=== PATIENT | female | born 1960 | race Asian ===

== ENCOUNTER 2016-08-22 04:32 | Emergency (ER) | payer OTHER ==
[2016-08-22] MEDS ORDERED: SODIUM CHLORIDE 1,000 ML IV ONE (04:38)
[2016-08-22] MEDS ORDERED: KETOROLAC TROMETHAMINE 30 MG/1 ML VIAL IVPUSH ONE (04:38)
[2016-08-22] MEDS ORDERED: morphine CARPU-JECT 2 MG/1 ML DISP.SYRIN IVPUSH ONE ×2 (04:38→05:51)
[2016-08-22] MEDS ORDERED: ONDANSETRON 4 MG/2 ML VIAL IVPUSH ONE (04:39)
--- NOTE | 2016-08-22 04:42 | PDOC ---
History of Present Illness - General Chief Complaint: Pain, Acute Stated Complaint: RIGHT FLANK PAIN Time Seen by Provider: 08/22/16 04:36 History Source: Patient Exam Limitations: No Limitations - History of Present Illness Initial Comments: 08/22/16 04:39 This is a 56-year-old female who comes in complaining of acute onset right flank pain associated with nausea. Patient has history of renal colic in the past. Patient said pain is similar this time. Patient denies any fevers, chills , frequency, dysuria. Patient denies any hematuria but urine that she gave us does appear to have some hematuria. Patient is otherwise healthy. PAST MEDICAL HISTORY: no significant history PAST SURGICAL HISTORY: no significant history FAMILY HISTORY: no pertinant history SOCIAL HISTORY: Pt lives with family and is employed. MEDICATIONS: reviewed ALLERGIES: As per nursing notes Review of Systems General: No fevers or chills, no weakness, no weight loss HEENT: No change in vision. No sore throat,. No ear pain CardioVascular: No chest pain or shortness of breath Respiratory:No cough, or wheezing. Gastrointestinal: no nausea, vomitting, diarrhea or constipation, No rectal bleeding Genitourinary: No dysuria, hematuria, or frequency, right flank pain, renal colic Musculoskeletal: No joint or muscle pain or swelling Neurologic: No headache, vertigo, dizziness or loss of consciousness Psychiatric: nor depression Skin: No rashes or easy bruising Endocrine: no increased thirst or abnormal weight change Allergic: no skin or latex allergy All other systems reviewed and normal Exam: General: Well-nourished well-developed individual, no acute distress HEENT: Throat: Normal, tonsils normal, no erythema or exudate Neck: Supple, no meningeal signs, no lymphadenopathy Eyes::Pupils equal reactive and round, extraocular motion intact Chest: Nontender to palpation Cardiac: S1-S2 normal, regular rate and rhythm, no murmurs rubs or gallops Respiratory: Lungs clear to auscultation bilateral Abdomen: Soft, nondistended, normal bowel sounds, moderately tender to palpation in the right flank and right lower abdomen. No guarding or rebound Back: No CVA tenderness mild to moderate palpation right flank. Extremities: Warm, dry, no cyanosis, clubbing, or edema Skin: No rashes Neuro: Alert and oriented x3, nonfocal exam, grossly intact, normal gait Psych: Normal mood and affect CT scan 08/22/16 06:09 Kit Planner: ([email or web address]) Begin of Report Content Referring Physician: Breanna Sandoval Patient Name: Brijesh Boucher This is a preliminary report by imaging manager utilization review Exam: Noncontrast CT abdomen and pelvis Images: [id number] Clinical indication: Flank pain. Rule out stone. Findings: The lung bases are clear. Minimal dependent changes are noted bilaterally. The liver, gallbladder, spleen and pancreas all have a normal unenhanced appearance. The adrenal glands are unremarkable. The left kidney has a normal unenhanced appearance. A right renal hypodensity is noted. A nonobstructing calculus is noted in the mid right kidney. There is fullness of the renal collecting system and proximal hydroureter. Nonobstructing 2 mm calculus is present in the proximal right ureter (image 61). The gastrointestinal tract does not appear obstructed. No thickened or dilated bowel is seen. The appendix has a normal appearance. No mesenteric infiltration or free fluid. The uterus is in neutral position. No adnexal masses are seen. The urinary bladder is unremarkable. No abdominal or pelvic adenopathy is seen. No lytic or blastic destructive osseous lesions are seen. Impression: Obstructing calculus in the proximal right ureter. THIS DOCUMENT HAS BEEN ELECTRONICALLY SIGNED Rudi Matthews M.D. 08/22/2016 05:53 SLOANE Coon Please call Imaging Human Resources Executive [phone] ([phone]) with questions. End of Report Content Assessment and plan: This is a 56-year-old female who comes in complaining of right flank pain. Patient had a workup including CAT scan that shows a nonobstructing 2 mm stone in the mid right ureter. patient is afebrile, she does not have a white count or left shift. Her urine shows blood but no sign of infection. Her pain is been managed in the emergency room with morphine and Toradol. Patient was given one Percocet before discharge. Prescriptions were sent to patient's pharmacy for her cassette, Zofran and Flomax. Patient was given a follow-up to urology Dr. Chavez Past History - Past Medical History Allergies/Adverse Reactions: Allergies Allergy/AdvReac Type Severity Reaction Status Date / Time No Known Allergies Allergy Verified 08/22/16 04:33 Home Medications: Ambulatory Orders Ondansetron [Zofran Odt -] 4 mg SL TID #21 od.tablet 08/22/16 Oxycodone HCl/Acetaminophen [Percocet 5-325 mg Tablet] 1 - 2 tab PO Q4H #20 tablet MDD 8 08/22/16 Tamsulosin HCl [Flomax] 0.4 mg PO DAILY #30 cap.er.24h 08/22/16 Anemia: No Asthma: No Cancer: No Cardiac Disorders: No CVA: No COPD: No CHF: No Dementia: No Diabetes: No GI Disorders: No Disorders: No HTN: No Hypercholesterolemia: No Liver Disease: No Seizures: No Thyroid Disease: No - Surgical History Abdominal Surgery: No Appendectomy: No Cardiac Surgery: No Cholecystectomy: No Lung Surgery: No Neurologic Surgery: No Orthopedic Surgery: No - Immunization History Immunization Up to Date: Yes - Psycho/Social/Smoking Cessation Hx Anxiety: No Suicidal Ideation: No Smoking Status: No Smoking History: Never smoked Have you smoked in the past 12 months: No Number of Cigarettes Smoked Daily: 0 Hx Alcohol Use: No Drug/Substance Use Hx: No Substance Use Type: None Hx Substance Use Treatment: No ED Treatment Course - LABORATORY CBC & Chemistry Diagram: 08/22/16 04:45 08/22/16 04:45 *DC/Admit/Observation/Transfer Diagnosis at time of Disposition: Renal colic on right side - Discharge Dispostion Disposition: HOME Condition at time of disposition: Stable Admit: No - Prescriptions Prescriptions: Tamsulosin HCl [Flomax] 0.4 mg PO DAILY #30 cap.er.24h Oxycodone HCl/Acetaminophen [Percocet 5-325 mg Tablet] 1 - 2 tab PO Q4H #20 tablet MDD 8 Ondansetron [Zofran Odt -] 4 mg SL TID #21 od.tablet - Patient Instructions Printed Discharge Instructions: DI for Kidney Stones, Kidney Stones -- Adult Additional Instructions: For the pain you can take Tylenol or Motrin. If she needs something stronger I am sending a prescription for Percocet to her pharmacy U can take one to 2 Percocet every 4-6 hours as needed. To help keep the urine: Take Flomax 1 tablet a day For nausea take Zofran 1 tablet as often as every 6-8 hours that it dissolve under your tongue. Stay well-hydrated strain your urine. Follow-up with a urologist in need a urologist call Dr. Bojorquez this morning for an appointment. Return to the emergency department immediately with ANY new, persistent or worsening symptoms. Continue any medications as previously prescribed by your physician. You should follow up with your primary doctor as soon as possible regarding today's emergency department visit. . Please make sure your doctor reviews the results of your emergency evaluation. Thank you for coming to the Emergency Department today for your care. It was a pleasure to see you today. Please note that your evaluation is INCOMPLETE until you follow-up with your doctor.
[2016-08-22 04:49] VITALS: BP 134/70; PULSE 64; TEMP 97.5; BMI 17.2
[2016-08-22 05:13] LABS: BASOPHIL 0.6 % (0-2.0); EOSINOPHIL 1.9 % (0-4.5); MCHC 33.6 g/dl (32.0-36.0); MEAN CELL VOLUME 95.2 fl (80-96); MEAN PLT VOLUME 11.3 fl (7.5-11.1); NEUTROPHILS 70.5 % (42.8-82.8); PLATELET COUNT 85 K/MM3 (134-434); RDW 12.8 % (11.6-15.6); WHITE BLOOD COUNT 8.4 K/mm3 (4.0-10.0)
[2016-08-22 05:15] LABS: URINE APPEARANCE SLCLOUDY; URINE BILIRUBIN NEGATIVE (NEGATIVE); URINE COLOR LTYELLOW; URINE GLUCOSE (UA) NEGATIVE (NEGATIVE); URINE KETONE NEGATIVE (NEGATIVE); URINE NITRITE NEGATIVE (NEGATIVE); URINE PROTEIN NEGATIVE (NEGATIVE); URINE UROBILINOGEN NEGATIVE E.U./dl (0.2-1.0)
[2016-08-22 05:19] LABS: URINE BLOOD 3+ (NEGATIVE); URINE LEUK ESTERASE TRACE (NEGATIVE)
[2016-08-22 05:22] LABS: URINE BACTERIA RARE /hpf (NONE SEEN); URINE MUCUS RARE; URINE RBC 909 /hpf (0-3); URINE WBC 27 /hpf (3-5)
[2016-08-22 05:34] LABS: ALBUMIN 3.8 g/dl (3.4-5.0); ALK PHOS 70 U/L (45-117); ANION GAP 9 (8-16); BILIRUBIN,TOTAL 0.6 mg/dL (0.2-1.0); CALCIUM 8.2 mg/dL (8.5-10.1); CO2 27 mmol/L (21-32); CREATININE 0.6 mg/dL (0.55-1.02); GLUCOSE,RANDOM 130 mg/dL (74-106); SGOT/AST 30 U/L (15-37); SGPT/ALT 34 U/L (12-78); TOT PROT 6.5 g/dl (6.4-8.2)
[2016-08-22 05:41] LABS: TROPONIN I < 0.02 ng/ml (0.00-0.05)
[2016-08-22] MEDS ORDERED: morphine CARPU-JECT 10 MG/1 ML DISP.SYRIN ONE (05:47)
[2016-08-22] MEDS ORDERED: OXYCODONE/APAP 5/325MG COMBO TABLET PO ONE (05:59)
[2016-08-22] MEDS ORDERED: OXYCODONE/APAP 5/325MG COMBO TABLET ONE (06:00)
== END 2016-08-22 06:24 | disposition home or self-care (01) ==
LOC: FER 04:32
PROC: 3E0333Z Introduction of Anti-inflammatory into Peripheral Vein, Percutaneous Approach (ICD-10-PCS; principal; 2016-08-22)
PROC: 3E033NZ Introduction of Analgesics, Hypnotics, Sedatives into Peripheral Vein, Percutaneous Approach (ICD-10-PCS; 2016-08-22)
PROC: 3E033GC Introduction of Other Therapeutic Substance into Peripheral Vein, Percutaneous Approach (ICD-10-PCS; 2016-08-22)
PROC: 3E0337Z Introduction of Electrolytic and Water Balance Substance into Peripheral Vein, Percutaneous Approach (ICD-10-PCS; 2016-08-22)
DX: N23 Unspecified renal colic (principal)
CPT/HCPCS: 36415; 74176-TC; 80053; 81003; 81015; 82550; 84484; 85025; 96361; 96374; 96375; 99281-25

== ENCOUNTER 2017-06-19 09:50 | Emergency (ER) | payer OTHER ==
[2017-06-19 09:57] VITALS: BP 119/70; PULSE 73; TEMP 97.4; BMI 17.4
--- NOTE | 2017-06-19 10:45 | PDOC ---
History of Present Illness - General Chief Complaint: Respiratory Stated Complaint: SOB Time Seen by Provider: 06/19/17 10:37 History Source: Patient Exam Limitations: No Limitations - History of Present Illness Initial Comments: 06/19/17 11:24 Patient came to emergency department for evaluation of 3 weeks of moist productive cough of yellow phlegm. States 3 days ago had temperatures 38.5 Celsius for 3 days. Complaints of headache, some mild sore throat pain, and some pleuritic type chest pain. Has been using Robitussin with minimal resolved. 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 Did not take flu shot this year Timing/Duration: reports: getting worse Severity: reports: mild, moderate Associated Symptoms: reports: chest pain/soreness, cough, fever/chills, headache , nasal congestion, nasal drainage, wheezing Past History - Travel Traveled outside of the country in the last 30 days: No Close contact w/someone who was outside of country & ill: No - Past Medical History Allergies/Adverse Reactions: Allergies Allergy/AdvReac Type Severity Reaction Status Date / Time No Known Allergies Allergy Verified 06/19/17 09:56 Home Medications: Ambulatory Orders Ondansetron [Zofran Odt -] 4 mg SL TID #21 od.tablet 08/22/16 Oxycodone HCl/Acetaminophen [Percocet 5-325 mg Tablet] 1 - 2 tab PO Q4H #20 tablet MDD 8 08/22/16 Tamsulosin HCl [Flomax] 0.4 mg PO DAILY #30 cap.er.24h 08/22/16 Albuterol Sulfate Inhaler - [Ventolin HFA Inhaler -] 1 - 2 inh PO Q4H #1 inhaler 06/19/17 Azithromycin [Zithromax -] 250 mg PO UTDICT #6 tab 06/19/17 Prednisone [Deltasone -] 20 mg PO BID #8 tablet 06/19/17 Anemia: No Asthma: No Cancer: No Cardiac Disorders: No CVA: No COPD: No CHF: No Dementia: No Diabetes: No GI Disorders: No Disorders: No HTN: No Hypercholesterolemia: No Liver Disease: No Seizures: No Thyroid Disease: No - Surgical History Abdominal Surgery: No Appendectomy: No Cardiac Surgery: No Cholecystectomy: No Lung Surgery: No Neurologic Surgery: No Orthopedic Surgery: No - Immunization History Immunization Up to Date: Yes - Suicide/Smoking/Psychosocial Hx Smoking Status: No Smoking History: Never smoked Have you smoked in the past 12 months: No Number of Cigarettes Smoked Daily: 0 Hx Alcohol Use: No Drug/Substance Use Hx: No Substance Use Type: None Hx Substance Use Treatment: No Respiratory Specific PMHX - Complaint Specific PMHX Bronchitis: No Review of Systems - Review of Systems Able to Perform ROS?: Yes Is the patient limited Kyrgyz proficient: Yes Constitutional: Yes: Symptoms Reported, See HPI, Fever, Loss of Appetite, Malaise HEENTM: Yes: Symptoms Reported, See HPI, Nose Congestion, Throat Pain Respiratory: Yes: Symptoms reported, See HPI, Cough, Shortness of Breath, Wheezing ABD/GI: Yes: See HPI. No: Symptoms Reported Musculoskeletal: Yes: Symptoms Reported All Other Systems: Reviewed and Negative *Physical Exam - Vital Signs Last Vital Signs Temp Pulse Resp BP Pulse Ox 97.4 F L 73 18 119/70 99 06/19/17 09:54 06/19/17 09:54 06/19/17 09:54 06/19/17 09:54 06/19/17 09:54 - Physical Exam General Appearance: Yes: Nourished, Appropriately Dressed, Apparent Distress, Mild Distress HEENT: positive: MELVIN, Normal ENT Inspection, TMs Normal (congested but landmarks easily visualized), Rhinorrhea, Sinus Tenderness Neck: positive: Supple. negative: Tender, Lymphadenopathy (R), Lymphadenopathy (L) Respiratory/Chest: positive: Decreased Breath Sounds (bibasilar inspiratory grunts), Wheezing. negative: Lungs Clear, Normal Breath Sounds, Respiratory Distress Cardiovascular: positive: Regular Rhythm Gastrointestinal/Abdominal: positive: Soft. negative: Tender Extremity: positive: Normal Capillary Refill, Normal Range of Motion Integumentary: positive: Normal Color, Dry, Warm, Pale Neurologic: positive: rubber flap cutter II-XII NML intact, Fully Oriented, Alert, Normal Mood/ Affect, Normal Response, Motor Strength 5/5 Progress Note - Progress Note Progress Note: Upper respiratory infection, influenza test negative, we'll treat with Z-Jerome, prednisone, and albuterol inhalers. Have follow-up PMD *DC/Admit/Observation/Transfer Diagnosis at time of Disposition: Bronchitis - Discharge Dispostion Disposition: HOME Condition at time of disposition: Stable Admit: No - Prescriptions Prescriptions: Albuterol Sulfate Inhaler - [Ventolin HFA Inhaler -] 1 - 2 inh PO Q4H #1 inhaler Azithromycin [Zithromax -] 250 mg PO UTDICT #6 tab Prednisone [Deltasone -] 20 mg PO BID #8 tablet - Referrals Referrals: STAFF,NOT ON [Primary Care Provider] - - Patient Instructions Additional Instructions: Rest, drink lots of fluids: Teas, water, soups, Pedialyte Saltwater gargles Steamy showers/seem to face break up mucus Avoid contact with others until fevers and cough resolved Lots of handwashing and good hygiene Continue [id number] medications for symptomatic relief Tylenol or Motrin for fever and pain Continue albuterol nebulizers every 4-6 hours for the next 2 days then as needed for continued cough Prednisone as directed until completed Azithromycin as directed Followup with private physician in one to 2 days Return to emergency department / pediatric hospital for worsened symptoms, fevers, dehydration - Post Discharge Activity
[2017-06-19] MEDS ORDERED: ALBUTEROL SO4 2.5/IPRATROPIUM 0.5 INH SOL 3 ML VIAL.NEB. NEB ONE ×2 (10:58→11:13)
[2017-06-19] MEDS ORDERED: predniSONE 20 MG TABLET (UD) PO ONE (10:58)
[2017-06-19] MEDS ORDERED: predniSONE 20 MG TABLET (UD) ONE (11:13)
== END 2017-06-19 12:15 | disposition home or self-care (01) ==
LOC: JERFT 09:50 → JER 09:50
PROC: 3E0F7GC Introduction of Other Therapeutic Substance into Respiratory Tract, Via Natural or Artificial Opening (ICD-10-PCS; principal; 2017-06-19)
DX: J40 Bronchitis, not specified as acute or chronic (principal)
CPT/HCPCS: 71020-TC; 87804; 94640; 99283-25

== ENCOUNTER 2017-07-18 07:26 | Emergency (ER) | payer OTHER ==
[2017-07-18 07:31] VITALS: BP 108/74; PULSE 93; TEMP 98.6; BMI 17.9
--- NOTE | 2017-07-18 07:33 | PDOC ---
History of Present Illness - General Chief Complaint: Cold Symptoms Stated Complaint: FEVER,COUGH Time Seen by Provider: 07/18/17 07:33 - History of Present Illness Initial Comments: 57 year old female with no PMH presenting with cough, fever, and lethargy for the past week. Did not use a thermometer at home to check the fever and describes the cough as dry and infrequent. She states all of the symptoms started with the cough one week prior and the fever has only been present for the past two days. She had similar symptoms one month prior for which she came to the ED and received a chest X ray that was completely normal. 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 Denies any nausea, vomiting, diarrhea, constipation, or chest pain. 07/18/17 07:49 Past History - Past Medical History Allergies/Adverse Reactions: Allergies Allergy/AdvReac Type Severity Reaction Status Date / Time No Known Allergies Allergy Verified 07/18/17 07:31 Home Medications: Ambulatory Orders Ondansetron [Zofran Odt -] 4 mg SL TID #21 od.tablet 08/22/16 Oxycodone HCl/Acetaminophen [Percocet 5-325 mg Tablet] 1 - 2 tab PO Q4H #20 tablet MDD 8 08/22/16 Tamsulosin HCl [Flomax] 0.4 mg PO DAILY #30 cap.er.24h 08/22/16 Albuterol Sulfate Inhaler - [Ventolin HFA Inhaler -] 1 - 2 inh PO Q4H #1 inhaler 06/19/17 Azithromycin [Zithromax -] 250 mg PO UTDICT #6 tab 06/19/17 Prednisone [Deltasone -] 20 mg PO BID #8 tablet 06/19/17 Azithromycin [Zithromax Tri-Jerome (3 DAYS) -] 500 mg PO DAILY #3 tablet 07/18/17 Guaifenesin AC [Robitussin AC] 10 ml PO Q8H PRN #120 ud MDD 40 ml 07/18/17 Anemia: No Asthma: No Cancer: No Cardiac Disorders: No CVA: No COPD: No CHF: No Dementia: No Diabetes: No GI Disorders: No Disorders: No HTN: No Hypercholesterolemia: No Liver Disease: No Seizures: No Thyroid Disease: No Other medical history: denies - Surgical History Abdominal Surgery: No Appendectomy: No Cardiac Surgery: No Cholecystectomy: No Lung Surgery: No Neurologic Surgery: No Orthopedic Surgery: No - Immunization History Immunization Up to Date: Yes - Suicide/Smoking/Psychosocial Hx Smoking Status: No Smoking History: Never smoked Have you smoked in the past 12 months: No Number of Cigarettes Smoked Daily: 0 Information on smoking cessation initiated: No Hx Alcohol Use: No Drug/Substance Use Hx: No Substance Use Type: None Hx Substance Use Treatment: No Review of Systems - Review of Systems Constitutional: Yes: Chills, Fever, Weakness. No: Diaphoresis, Loss of Appetite HEENTM: Yes: Blurred Vision (two days prior had one episode of blurred vision) Respiratory: Yes: Cough. No: Orthopnea, Shortness of Breath, Wheezing Cardiac (ROS): No: Chest Pain, Edema, Irregular Heart Rate, Chest Tightness ABD/GI: Yes: Poor Fluid Intake. No: Abdominal Distended, Constipated, Diarrhea , Nausea, Vomiting : No: Dysuria, Discharge, Frequency Integumentary: No: Lesions, Lumps Neurological: Yes: Headache. No: Numbness *Physical Exam - Vital Signs Last Vital Signs Temp Pulse Resp BP Pulse Ox 98.6 F 93 H 18 108/74 98 07/18/17 07:29 07/18/17 07:29 07/18/17 07:29 07/18/17 07:29 07/18/17 07:29 - Physical Exam General Appearance: Yes: Nourished, Appropriately Dressed. No: Apparent Distress HEENT: positive: EOMI, MELVIN, Normal ENT Inspection Neck: positive: Trachea midline, Normal Thyroid, Supple. negative: Tender, Rigid Respiratory/Chest: positive: Lungs Clear, Normal Breath Sounds. negative: Chest Tender, Respiratory Distress, Accessory Muscle Use Cardiovascular: positive: Regular Rhythm, Regular Rate Gastrointestinal/Abdominal: positive: Normal Bowel Sounds, Flat, Soft. negative : Tender Musculoskeletal: positive: Normal Inspection Extremity: positive: Normal Capillary Refill, Normal Inspection Integumentary: positive: Normal Color, Dry, Warm Neurologic: positive: Fully Oriented, Alert, Normal Mood/Affect, Normal Response , Motor Strength 5/5 ED Treatment Course - LABORATORY CBC & Chemistry Diagram: 07/18/17 08:27 07/18/17 08:27 Medical Decision Making - Medical Decision Making 57 year old female with URI like symptoms, clear CXR, and labs significant for slightly low WBC and thrombocytopenia. Flu negative. Patietn feeling better with toradol IV and Zofran. Seems very anxious. Has no consistent PCP follow up so sent home with Gal Chapman follow up and elijahutssin for cough. 07/18/17 10:19 *DC/Admit/Observation/Transfer Diagnosis at time of Disposition: Viral URI with cough - Discharge Dispostion Disposition: HOME Condition at time of disposition: Improved Admit: No - Prescriptions Prescriptions: Azithromycin [Zithromax Tri-Jerome (3 DAYS) -] 500 mg PO DAILY #3 tablet Guaifenesin AC [Robitussin AC] 10 ml PO Q8H PRN #120 ud MDD 40 ml PRN Reason: Cough - Referrals Referrals: David Santo MD [Staff Physician] - - Patient Instructions Printed Discharge Instructions: DI for Viral Upper Respiratory Infection -- Adult Additional Instructions: You do not have the common flu virus and your labs did not show infection but you may have another virus that we cannot test for. Also your WBC and platelets were slightly low. Your chest x ray was clear and does not show infection. Please use Tylenol and Motrin at home for your fever and pain. Please follow up with Dr. Santo this week at the [facility] if you have any more questions. Please return to the ED if you get worse or your symptoms do not start to improve after using Tylenol. - Post Discharge Activity
[2017-07-18] MEDS ORDERED: KETOROLAC TROMETHAMINE 15 MG/ML VIAL IVPUSH ONE (08:30)
[2017-07-18] MEDS ORDERED: SODIUM CHLORIDE 1,000 ML IV STA (08:31)
--- NOTE | 2017-07-18 08:31 | PDOC ---
Attending Attestation - Resident Resident Name: Bear Matos - ED Attending Attestation I have performed the following: I have examined & evaluated the patient, The case was reviewed & discussed with the resident, I agree w/resident's findings & plan, Exceptions are as noted - HPI HPI: 07/18/17 08:26 57-year-old female with no significant past medical history presents with 1 week of cough, fatigue, anorexia, bodyaches, and gradual onset frontal headache. 2 days ago the patient developed a fever to a MAXIMUM TEMPERATURE of 101.3 and she spiked another fever overnight which prompted her to come into the emergency department today. She also reports a sore throat last week that has since resolved. Her cough is nonproductive, however now she has lower chest pain when she coughs. No recent travel or long trips. No history of TB. Last saw her primary doctor last year, does not remember his name. No treatments tried. Denies shortness of breath, focal weakness or numbness, neck stiffness, abdominal pain. - Physicial Exam PE: 07/18/17 08:28 GENERAL: Awake, alert, and fully oriented, in no acute distress. Feels warm HEAD: No signs of trauma EYES: PERRLA, EOMI, sclera anicteric, conjunctiva clear ENT: Auricles normal inspection, hearing grossly normal, nares patent, oropharynx clear without exudates. Moist mucosa NECK: Normal ROM, supple, no lymphadenopathy, JVD, or masses LUNGS: Breath sounds equal, clear to auscultation bilaterally. No wheezes, and no crackles HEART: Regular rate and rhythm, normal S1 and S2, no murmurs, rubs or gallops ABDOMEN: Soft, nontender, normoactive bowel sounds. No guarding, no rebound. No masses EXTREMITIES: Normal range of motion, no edema. No clubbing or cyanosis. No cords, erythema, or tenderness NEUROLOGICAL: Normal speech, cranial nerves intact, negative pronator drift, 5/ 5 strength in all 4 extremities, normal sensation to light touch in all 4 extremities, normal cerebellar exam, normal gait, normal reflexes and tone SKIN: Warm, Dry, normal turgor, no rashes or lesions noted. - Medical Decision Making 07/18/17 08:30 57-year-old female presents with flulike symptoms for one week, now developed fever over the last 2 days. Given length of symptoms, we'll obtain basic labs and check a chest x-ray. In the meantime will give Toradol and fluids and reassess. 07/18/17 10:01 Labs with slight leukopenia and thrombocytopenia which patient reports she has had in the past. Advised her to follow-up with her primary care doctor for repeat of those abnormal blood tests to which she expressed understanding. Chest x-ray is clear and remainder of labs unremarkable. Likely a viral syndrome , I prescribed azithromycin for likely bronchitis and advised patient to take ibuprofen/tylenol as needed for body aches and pains. I advised her to follow up with her primary doctor within 1-2 days and referred her to see Dr. Santo if she was unable to obtain an appointment soon enough. Patient requests discharge home. I discussed the physical exam findings, ancillary test results and final diagnoses with the patient. I answered all of the patient's questions. The patient was satisfied with the care received and felt comfortable with the discharge plan and treatment plan. The patient will call their primary care physician within 24 hours to arrange follow-up and will return to the Emergency Department with any new, persistent or worsening symptoms.
[2017-07-18 09:00] LABS: BASO % 0.4 % (0-2.0); EOS % 0.5 % (0-4.5); HEMOGLOBIN 13.8 GM/dL (10.7-15.3); LYMPH % 15.2 % (8-40); MCH 30.8 pg (25.7-33.7); MCHC 32.9 g/dl (32.0-36.0); MEAN CELL VOLUME 93.8 fl (80-96); MEAN PLT VOLUME 10.4 fl (7.5-11.1); MONO % 11.3 % (3.8-10.2); NEUT % 72.6 % (42.8-82.8); PLATELET COUNT 77 K/MM3 (134-434); RBC 4.48 M/mm3 (3.60-5.2); WHITE BLOOD COUNT 3.5 K/mm3 (4.0-10.0)
[2017-07-18 09:27] LABS: ALBUMIN 3.9 g/dl (3.4-5.0); ANION GAP 9 (8-16); BLOOD UREA NITROGEN 6 mg/dL (7-18); CALCIUM 8.6 mg/dL (8.5-10.1); CHLORIDE 100 mmol/L (98-107); CO2 28 mmol/L (21-32); GLUCOSE,RANDOM 84 mg/dL (74-106); POTASSIUM 3.5 mmol/L (3.5-5.1); SODIUM 137 mmol/L (136-145)
[2017-07-18 09:31] LABS: ALK PHOS 88 U/L (45-117); BILIRUBIN,TOTAL 1.1 mg/dL (0.2-1.0); CREATININE 0.4 mg/dL (0.55-1.02); SGOT/AST 25 U/L (15-37); SGPT/ALT 28 U/L (12-78)
[2017-07-18] MEDS ORDERED: KETOROLAC TROMETHAMINE 15 MG/ML VIAL ONE (09:35)
== END 2017-07-18 09:50 | disposition home or self-care (01) ==
LOC: JER 07:26
PROC: 3E0333Z Introduction of Anti-inflammatory into Peripheral Vein, Percutaneous Approach (ICD-10-PCS; principal; 2017-07-18)
DX: J06.9 Acute upper respiratory infection, unspecified (principal); R05 Cough
CPT/HCPCS: 36415; 71046-TC; 80053; 85025; 87804; 96374; 99282-25

== ENCOUNTER 2017-08-21 14:46 | Day surgery (SDC) | payer OTHER ==
[2017-08-02 09:55] VITALS: BMI 17.4
[2017-08-21 15:23] VITALS: TEMP 98
[2017-08-21] MEDS ORDERED: MIDAZOLAM HCL 2 MG/2 ML SINGLE DOSE VIAL ONE (16:13)
--- NOTE | 2017-08-21 17:33 | OP ---
Operative Note - Note: Operative Date: 08/21/17 Pre-Operative Diagnosis: Right kidney stones Operation: Right ESWL Findings: 6 mm R mid pole kidney stone Surgeon: Vipul Grey
[2017-08-21 19:02] VITALS: BP 106/52; PULSE 61
--- NOTE | 2017-08-22 08:14 | OP ---
DATE OF OPERATION: 08/21/2017 PREOPERATIVE DIAGNOSIS: Right renal stone. POSTOPERATIVE DIAGNOSIS: Right renal stone. PROCEDURE: Right extracorporeal shock wave lithotripsy. ATTENDING: Vipul Warren MD ANESTHESIA: General. DESCRIPTION OF OPERATION: Patient was brought in the operating room, placed in supine position on the operating room table. A right mid-pole, 6-mm stone was identified on ultrasonography and fluoroscopy. The patient was then given fractional anesthesia and preoperative antibiotics; 2500 impulses of the extracorporeal shock wave lithotripsy were delivered to the stone at 16 joules of power. Excellent fragmentation was noted under real-time ultrasonography and fluoroscopy. No complications were noted. The patient tolerated the procedure very well. Shaggy [id number]
== END 2017-08-21 19:02 | disposition home or self-care (01) ==
LOC: JASU-SURG 14:46
PROVIDERS: ATTEND Urology
PROC: 0TF3XZZ Fragmentation in Right Kidney Pelvis, External Approach (ICD-10-PCS; principal; 2017-08-21 16:15)
DX: N20.0 Calculus of kidney (principal)

== ENCOUNTER 2017-12-13 19:16 | Emergency (ER) | payer OTHER ==
[2017-12-13 19:28] VITALS: BP 121/71; PULSE 76; TEMP 98.1; BMI 17.6
--- NOTE | 2017-12-13 19:52 | PDOC ---
History of Present Illness - General History Source: Patient Exam Limitations: No Limitations - History of Present Illness Initial Comments: 12/13/17 20:27 The patient is a 57 year old female with no significant PMH who presents to the emergency department with a cough for 2 weeks. The patient reports that she recently had cold symptoms that lasted about 2 months. She states that her cough has been persistent for the past 2 weeks and is worsened at night. The patient reports that she took some antibiotics that were previously prescribed to her but denies any relief. The patient reports that she wanted to be seen to get an x-Ray . the patient denies any other symptoms. She denies chest pain, shortness of breath, headache and dizziness. She denies fever, chills, nausea, vomit, diarrhea, constipation or urinary symptoms. The patient denies any other complaints. PAST MEDICAL HISTORY: no significant history PAST SURGICAL HISTORY: no significant history FAMILY HISTORY: no pertinent history SOCIAL HISTORY: Pt lives at home MEDICATIONS: reviewed ALLERGIES: As per nursing notes General: No fevers or chills, no weakness, no weight loss HEENT: No change in vision. No sore throat,. No ear pain CardioVascular: No chest pain or shortness of breath Respiratory: (+)cough. No wheezing. Gastrointestinal: no nausea, vomiting, diarrhea or constipation, No rectal bleeding Genitourinary: No dysuria, hematuria, or frequency Musculoskeletal: No joint or muscle pain or swelling Neurologic: No headache, vertigo, dizziness or loss of consciousness Psychiatric: nor depression Skin: No rashes or easy bruising Endocrine: no increased thirst or abnormal weight change Allergic: no skin or latex allergy All other systems reviewed and normal GENERAL: The patient is awake, alert, and fully oriented, in no acute distress. HEAD: Normal with no signs of trauma. EYES: Pupils equal, round and reactive to light, extraocular movements intact, sclera anicteric, conjunctiva clear. EXTREMITIES: Normal range of motion, no edema. NEUROLOGICAL: Normal speech, normal gait. PSYCH: Normal mood, normal affect. SKIN: Warm, Dry, normal turgor, no rashes or lesions noted. <Blanquita Herrera - Last Filed: 12/13/17 20:27> - General History Source: Patient Exam Limitations: No Limitations - History of Present Illness Initial Comments: 12/13/17 20:04 A portion of this note was documented by scribe services under my direction. I have reviewed the details of the note, within reason, and agree with the documentation. The case summary and management plan written by me. Medical decision making this is a 57-year-old female comes in complaining of one month of cough. Cough was initially productive and preceded by sore throat and now is nonproductive and worse at night. Patient denies any fevers. We'll obtain chest x-ray, give patient DuoNeb, reassess and review results of chest x-ray. 12/13/17 20:38 Reevaluation patient said the DuoNeb did help she feels better less coughing. Chest x-ray is negative for any acute pathology Assessment and plan: This is a 57-year-old female with persistent cough 1 month. Patient otherwise denied any chest pain shortness of breath or any other complaints. Patient was given a dual neb with improvement of her symptoms. Chest x-ray was negative. Prescription for Ventolin inhaler and Tessalon Perles were sent to her pharmacy. Patient was instructed to follow-up with her doctor in one week if not improved <Breanna Sandoval I - Last Filed: 12/13/17 20:40> - General Chief Complaint: Cold Symptoms Stated Complaint: COUGH X1 MONTH Time Seen by Provider: 12/13/17 19:44 Past History <Blanquita Herrera - Last Filed: 12/13/17 20:27> - Past Medical History Anemia: No Asthma: No Cancer: No Cardiac Disorders: No CVA: No COPD: No CHF: No Dementia: No Diabetes: No GI Disorders: No Disorders: No HTN: No Hypercholesterolemia: No Liver Disease: No Seizures: No Thyroid Disease: No - Surgical History Abdominal Surgery: No Appendectomy: No Cardiac Surgery: No Cholecystectomy: No Lung Surgery: No Neurologic Surgery: No Orthopedic Surgery: No - Immunization History Immunization Up to Date: Yes - Suicide/Smoking/Psychosocial Hx Smoking Status: No Smoking History: Never smoked Have you smoked in the past 12 months: No Number of Cigarettes Smoked Daily: 0 Information on smoking cessation initiated: No Hx Alcohol Use: No Drug/Substance Use Hx: No Substance Use Type: None Hx Substance Use Treatment: No <Breanna Sandoval I - Last Filed: 12/13/17 20:40> - Past Medical History Allergies/Adverse Reactions: Allergies Allergy/AdvReac Type Severity Reaction Status Date / Time No Known Allergies Allergy Verified 08/21/17 15:21 Home Medications: Ambulatory Orders Albuterol Sulfate Inhaler - [Ventolin Hfa Inhaler -] 1 - 2 inh PO QID PRN #1 inhaler 12/13/17 Benzonatate [Tessalon Pearls -] 100 mg PO TID #21 capsule 12/13/17 Respiratory Specific PMHX - Complaint Specific PMHX Bronchitis: No <Breanna Sandoval I - Last Filed: 12/13/17 20:40> *Physical Exam - Vital Signs Last Vital Signs Temp Pulse Resp BP Pulse Ox 98.1 F 76 14 121/71 100 12/13/17 19:19 12/13/17 19:19 12/13/17 19:19 12/13/17 19:19 12/13/17 19:19 <Blanquita Herrera - Last Filed: 12/13/17 20:27> - Vital Signs Last Vital Signs Temp Pulse Resp BP Pulse Ox 98.1 F 76 14 121/71 100 12/13/17 19:19 12/13/17 19:19 12/13/17 19:19 12/13/17 19:19 12/13/17 19:19 <Breanna Sandoval I - Last Filed: 12/13/17 20:40> ED Treatment Course - Medications Given in the ED: ED Medications Discontinued Medications Generic Name Dose Route Start Last Admin Trade Name Freq PRN Reason Stop Dose Admin Albuterol/Ipratropium 1 amp 12/13/17 19:53 12/13/17 19:54 Duoneb - NEB 12/13/17 19:54 1 amp ONCE ONE Administration <Blanquita Herrera - Last Filed: 12/13/17 20:27> *DC/Admit/Observation/Transfer - Attestations Scribe Attestion: 12/13/17 20:28 Documentation prepared by Blanquita Herrera, acting as medical manager for Breanna Sandoval MD. <Blanquita Herrera - Last Filed: 12/13/17 20:27> - Discharge Dispostion Decision to Admit order: No <Breanna Sandoval I - Last Filed: 12/13/17 20:40> Diagnosis at time of Disposition: Persistent cough for 3 weeks or longer - Discharge Dispostion Disposition: HOME Condition at time of disposition: Good - Prescriptions Prescriptions: Albuterol Sulfate Inhaler - [Ventolin Hfa Inhaler -] 1 - 2 inh PO QID PRN #1 inhaler PRN Reason: Cough Benzonatate [Tessalon Pearls -] 100 mg PO TID #21 capsule - Referrals Referrals: Noel Corcoran MD [Primary Care Provider] - - Patient Instructions Additional Instructions: I sent a prescription to your pharmacy for a inhaler U can use it as often as 3- 4 times a day as needed for coughing. In addition to the inhaler eyes give you a prescription for Tessalon Perles take them as directed these are also for the cough. If you are not better in one week follow-up with your doctor. Return to the emergency department immediately with ANY new, persistent or worsening symptoms. Continue any medications as previously prescribed by your physician. You should follow up with your primary doctor as soon as possible regarding today's emergency department visit. . Please make sure your doctor reviews the results of your emergency evaluation. Thank you for coming to the Emergency Department today for your care. It was a pleasure to see you today. Please note that your evaluation is INCOMPLETE until you follow-up with your doctor. - Post Discharge Activity
[2017-12-13] MEDS ORDERED: ALBUTEROL SO4 2.5/IPRATROPIUM 0.5 INH SOL 3 ML VIAL.NEB. NEB ONE ×2 (19:53→19:55)
== END 2017-12-13 20:50 | disposition home or self-care (01) ==
LOC: FER 19:16
PROC: 3E0F7GC Introduction of Other Therapeutic Substance into Respiratory Tract, Via Natural or Artificial Opening (ICD-10-PCS; principal; 2017-12-13)
DX: R05 Cough (principal)
CPT/HCPCS: 71046-TC-FY; 99282-25; J7620

== ENCOUNTER 2019-07-17 03:09 | Emergency (ER) | payer OTHER ==
[2019-07-17 03:15] VITALS: BP 142/78; PULSE 65; TEMP 97.6; BMI 17.4
[2019-07-17] MEDS ORDERED: KETOROLAC TROMETHAMINE 30 MG/1 ML VIAL ONE (03:19)
[2019-07-17] MEDS ORDERED: KETOROLAC TROMETHAMINE 30 MG/1 ML VIAL IM ONE (03:20)
--- NOTE | 2019-07-17 03:21 | PDOC ---
History of Present Illness - General Chief Complaint: Pain Stated Complaint: RIGHT SHOULDER PAIN X 4 DAYS Time Seen by Provider: 07/17/19 03:20 - History of Present Illness Initial Comments: 07/17/19 03:27 This 59-year-old woman with a history of renal stones and intermittent lower back pain presents with 4-day history of progressive right shoulder pain. Pain is worse with movement of her shoulder; she denies shortness of breath, chest pain, weakness or numbness in her arm. She has no history of trauma or fall. Other than looking down at her phone for more protracted periods of time over the last few days, there is been no unusual activity or change in posture. No history of neck injury or chronic neck pain. Patient has been taking intermittent acetaminophen for the pain (last dose yesterday morning, that is almost 24 hours ago). She has no history of peptic ulcer disease, gastritis, renal disease or other contraindication to NSAIDs. Past History - Past Medical History Allergies/Adverse Reactions: Allergies Allergy/AdvReac Type Severity Reaction Status Date / Time No Known Allergies Allergy Verified 07/17/19 03:10 Home Medications: Ambulatory Orders Diclofenac Sodium [Voltaren -] 75 mg PO BID PRN #14 tablet. 07/17/19 Anemia: No Asthma: No Cancer: No Cardiac Disorders: No CVA: No COPD: No CHF: No Dementia: No Diabetes: No GI Disorders: No Disorders: No HTN: No Hypercholesterolemia: No Liver Disease: No Seizures: No Thyroid Disease: No - Surgical History Abdominal Surgery: No Appendectomy: No Cardiac Surgery: No Cholecystectomy: No Lung Surgery: No Neurologic Surgery: No Orthopedic Surgery: No - Immunization History Immunization Up to Date: Yes - Psycho Social/Smoking Cessation Hx Smoking Status: No Smoking History: Never smoked Have you smoked in the past 12 months: No Number of Cigarettes Smoked Daily: 0 Information on smoking cessation initiated: No Hx Alcohol Use: No Drug/Substance Use Hx: No Substance Use Type: None Hx Substance Use Treatment: No Review of Systems - Review of Systems Able to Perform ROS?: Yes Comments:: 12 point review of systems is negative except for what is noted in the history of present illness *Physical Exam - Vital Signs Last Vital Signs Temp Pulse Resp BP Pulse Ox 97.6 F 65 15 142/78 100 07/17/19 03:12 07/17/19 03:12 07/17/19 03:12 07/17/19 03:12 07/17/19 03:12 - Physical Exam GENERAL: Adult female, alert and oriented x3 in mild distress secondary to right shoulder discomfort; no respiratory distress HEAD: Normal with no signs of trauma. EYES: PERRLA, EOMI, sclera anicteric, conjunctiva clear. ENT: Ears normal, nares patent, oropharynx clear without exudates. Moist mucous membranes. NECK: Normal range of motion, supple without lymphadenopathy, JVD, or masses. Cervical spine nontender LUNGS: Breath sounds equal, clear to auscultation bilaterally. No wheezes, and no crackles. HEART:Regular rate and rhythm, normal S1 and S2 without murmur, rub or gallop. ABDOMEN:.normal bowel sounds No guarding,tenderness or rebound.No masses No distention. EXTREMITIES: Right upper extremity-no deformity/edema/ecchymosis noted of shoulder joint; no deformity or tenderness of clavicle or scapula Shoulder pain with abduction of arm greater than 20 degrees Distal humerus/elbow/forearm/wrist/arm all nontender and nonedematous Radial pulse at wrist briskly palpable ; motor and sensory function intact Remainder of the extremity exam is normal NEUROLOGICAL: Cranial nerves II through XII grossly intact. Normal speech. No focal neurological deficits. MUSCULOSKELETAL: Back non-tender to palpation, no CVA tenderness SKIN: Warm, Dry, normal turgor, no rashes or lesions noted. Medical Decision Making - Medical Decision Making Right shoulder x-ray performed: Preliminary interpretation by inga evidence of fracture or dislocation. No evidence of bony lesions or significant osteoarthritis Clinical presentation most consistent with right shoulder strain/sprain with accompanying muscle spasm Toradol 30 mg IM given Patient will be discharged with instructions to apply local warmth to the area of pain; prescription for diclofenac 75 mg twice a day as needed (take with food ) sent to her pharmacy. Patient does not have an orthopedist. She is given referral information for the [facility]; she should call the office in the morning to arrange for follow-up within the next few days. She should return to the ER if she has severe, persistent pain or if she develops weakness/numbness of her arm or shortness of breath/chest pain Discharge - Discharge Information Problems reviewed: Yes Clinical Impression/Diagnosis: Right shoulder strain Qualifiers: Encounter type: initial encounter Qualified Code(s): S46.911A - Strain of unspecified muscle, fascia and tendon at shoulder and upper arm level, right arm , initial encounter Condition: Stable Disposition: HOME - Additional Discharge Information Prescriptions: Diclofenac Sodium [Voltaren -] 75 mg PO BID PRN #14 tablet.dr MOORE Reason: Pain - Follow up/Referral Referrals: Kole Lisa MD [Staff Physician] - Call tomorrow - Patient Discharge Instructions Patient Printed Discharge Instructions: Shoulder Sprain Additional Instructions: Local warmth to area of pain Voltaren 75 mg twice a day; take with food Call orthopedic office tomorrow to arrange follow-up within the next few days Return to ER if you have persistent severe pain or develop weakness/numbness of your arm - Post Discharge Activity
== END 2019-07-17 04:08 | disposition home or self-care (01) ==
LOC: FER 03:09
PROC: 3E0233Z Introduction of Anti-inflammatory into Muscle, Percutaneous Approach (ICD-10-PCS; principal; 2019-07-17)
DX: S46.911A Strain of unspecified muscle, fascia and tendon at shoulder and upper arm level, right arm, initial encounter (principal); X58.XXXA Exposure to other specified factors, initial encounter; Y93.89 Activity, other specified; Y92.89 Other specified places as the place of occurrence of the external cause
CPT/HCPCS: 73030-TC-RT-FY; 96372; 99281-25

== ENCOUNTER 2021-11-14 16:44 | Emergency (ER) | payer OTHER ==
[2021-11-14] MEDS ORDERED: KETOROLAC TROMETHAMINE 15 MG/ML VIAL IVPUSH ONE (16:47)
[2021-11-14] MEDS ORDERED: ONDANSETRON 4 MG/2 ML VIAL IVPB ONE (16:47)
[2021-11-14] MEDS ORDERED: SODIUM CHLORIDE 1,000 ML IV STA ×2 (16:51→17:38)
[2021-11-14] MEDS ORDERED: KETOROLAC TROMETHAMINE 15 MG/ML VIAL ONE (16:53)
[2021-11-14] MEDS ORDERED: ONDANSETRON 4 MG/2 ML VIAL ONE (16:53)
[2021-11-14 17:25] LABS: HEMATOCRIT 40.6 % (32.4-45.2); HEMOGLOBIN 14.3 G/dL (10.7-15.3); MCH 33.7 pg (25.7-33.7); MCHC 35.1 g/dl (32.0-36.0); MEAN CELL VOLUME 95.8 fl (80-96); MEAN PLT VOLUME 11.4 fl (7.5-11.1); PLATELET COUNT 107.3 10^3/uL (134-434); RBC 4.24 10^6/uL (3.60-5.2); RDW 13.5 % (11.6-15.6); WHITE BLOOD COUNT 8.2 10^3/uL (4.0-10.8)
[2021-11-14] MEDS ORDERED: ACETAMINOPHEN 1000 MG/100 ML BAG IVPB ONE (17:41)
[2021-11-14 17:52] LABS: CALCIUM OXALATE CRYSTALS MANY /hpf (NONE SEEN); EPITHELIAL CELLS FEW /hpf
[2021-11-14 17:54] VITALS: BP 126/72; PULSE 75; TEMP 98.5; BMI 16.6
[2021-11-14 18:46] LABS: ALBUMIN 4.1 g/dl (3.4-5.0); CALCIUM 9.2 mg/dL (8.5-10.1)
[2021-11-14 18:47] LABS: BLOOD UREA NITROGEN 20.7 mg/dL (7-18)
[2021-11-14 18:50] LABS: CREATININE 0.7 mg/dL (0.55-1.3)
[2021-11-14 18:51] LABS: BILIRUBIN,TOTAL 0.6 mg/dL (0.2-1)
[2021-11-14 19:56] LABS: PLATELET ESTIMATE DECREASED
== END 2021-11-14 19:20 | disposition home or self-care (01) ==
LOC: FER 16:44
PROC: 3E033GC Introduction of Other Therapeutic Substance into Peripheral Vein, Percutaneous Approach (ICD-10-PCS; principal; 2021-11-14)
DX: N13.2 Hydronephrosis with renal and ureteral calculous obstruction (principal)
CPT/HCPCS: 36415; 74176-TC; 80053; 81003; 81015; 85027; 99285-25

== ENCOUNTER 2021-11-15 07:05 | Emergency (ER) | payer OTHER ==
[2021-11-15] MEDS ORDERED: KETOROLAC TROMETHAMINE 30 MG/1 ML VIAL IM ONE (07:18)
[2021-11-15 07:20] VITALS: BP 139/95; PULSE 65; TEMP 98.3; BMI 16.6
[2021-11-15] MEDS ORDERED: KETOROLAC TROMETHAMINE 30 MG/1 ML VIAL ONE (07:24)
== END 2021-11-15 08:01 | disposition home or self-care (01) ==
LOC: FER 07:05
PROC: 3E023GC Introduction of Other Therapeutic Substance into Muscle, Percutaneous Approach (ICD-10-PCS; principal; 2021-11-15)
DX: N20.0 Calculus of kidney (principal)
CPT/HCPCS: 99284-25

== ENCOUNTER 2021-12-04 23:48 | Emergency (ER) | payer OTHER ==
[2021-12-04 23:59] VITALS: BMI 16.7
[2021-12-05] MEDS ORDERED: KETOROLAC TROMETHAMINE 60 MG/2 ML VIAL IM ONE (00:10)
[2021-12-05] MEDS ORDERED: KETOROLAC TROMETHAMINE 60 MG/2 ML VIAL ONE (00:11)
[2021-12-05] MEDS ORDERED: ONDANSETRON *ODT* 4 MG TABLET ONE (00:11)
[2021-12-05] MEDS ORDERED: ONDANSETRON *ODT* 4 MG TABLET SL ONE (00:12)
[2021-12-05 00:34] VITALS: BP 134/65; PULSE 51; TEMP 98.7
== END 2021-12-05 01:15 | disposition home or self-care (01) ==
LOC: FER 23:48
PROC: 3E0233Z Introduction of Anti-inflammatory into Muscle, Percutaneous Approach (ICD-10-PCS; principal; 2021-12-04)
DX: N20.0 Calculus of kidney (principal)
CPT/HCPCS: 99284-25; Q0162

== ENCOUNTER 2021-12-05 10:16 | Inpatient (IN) | payer OTHER ==
[2021-12-05 10:21] VITALS: BMI 16.6
[2021-12-05] MEDS ORDERED: SODIUM CHLORIDE 0.9% 500 ML INFUS.BAG IV ONE ×2 (11:47→12:45)
[2021-12-05] MEDS ORDERED: ACETAMINOPHEN 1000 MG/100 ML BAG IVPB ONE (11:47)
[2021-12-05] MEDS ORDERED: KETOROLAC TROMETHAMINE 30 MG/1 ML VIAL IVPUSH ONE (11:47)
[2021-12-05] MEDS ORDERED: KETOROLAC TROMETHAMINE 30 MG/1 ML VIAL ONE (11:54)
[2021-12-05] MEDS ORDERED: ACETAMINOPHEN INJECTION 100 ML IVPB ONE (11:54)
[2021-12-05 12:34] LABS: BASO % 0.5 % (0-2.0); EOS % 0.9 % (0-4.5); HEMATOCRIT 41.4 % (32.4-45.2); HEMOGLOBIN 13.9 GM/dL (10.7-15.3); LYMPH % 13.3 % (8-40); MCH 32.3 pg (25.7-33.7); MCHC 33.6 g/dl (32.0-36.0); MEAN CELL VOLUME 95.9 fl (80-96); MEAN PLT VOLUME 10.4 fl (7.5-11.1); MONO % 3.9 % (3.8-10.2); NEUT % 81.4 % (42.8-82.8); PLATELET COUNT 91 10^3/uL (134-434); RBC 4.32 M/mm3 (3.60-5.2); RDW 12.8 % (11.6-15.6); WHITE BLOOD COUNT 5.9 K/mm3 (4.0-10.0)
[2021-12-05 12:36] LABS: EPI CELLS 18 /uL (0-25.1); HYALINE CASTS 3 /uL (0-3.1); URINE APPEARANCE CLEAR; URINE BACTERIA 13 /uL (0-1359); URINE BILIRUBIN NEGATIVE (NEGATIVE); URINE COLOR YELLOW; URINE GLUCOSE (UA) NEGATIVE (NEGATIVE); URINE KETONE 2+ (NEGATIVE); URINE LEUK ESTERASE 1+ (NEGATIVE); URINE NITRITE NEGATIVE (NEGATIVE); URINE PROTEIN 1+ (NEGATIVE); URINE RBC 45 /uL (0-23.9); URINE UROBILINOGEN 0.2 mg/dL (0.2-1.0); URINE WBC 150 /uL (0-25.8)
[2021-12-05] MEDS ORDERED: morphine CARPU-JECT 2 MG/1 ML DISP.SYRIN IVPUSH ONE ×2 (12:41→15:39)
[2021-12-05 12:54] LABS: ALBUMIN 3.9 g/dl (3.4-5.0); CALCIUM 9.2 mg/dL (8.5-10.1)
[2021-12-05 12:55] LABS: BLOOD UREA NITROGEN 19.1 mg/dL (7-18)
[2021-12-05 12:57] LABS: CREATININE 0.8 mg/dL (0.55-1.3)
[2021-12-05 12:59] LABS: BILIRUBIN,TOTAL 0.9 mg/dL (0.2-1); TOT PROT 7.2 g/dl (6.4-8.2)
[2021-12-05] MEDS: SODIUM CHLORIDE 1,000 ML IV SCH ×2 (21:38→21:48)
[2021-12-05] MEDS ORDERED: CIPROFLOXACIN 500 MG TABLET (RESTRICTED TO ID) PO SCH (22:00)
[2021-12-06] MEDS ORDERED: TAMSULOSIN HCL 0.4 MG CAP PO SCH (08:30)
[2021-12-06] MEDS ORDERED: TAMSULOSIN HCL 0.4 MG CAP ONE (09:17)
[2021-12-06] MEDS ORDERED: ENOXAPARIN NA (PORCINE) 40 MG/0.4 ML DISP.SYRIN SQ ONE (09:17)
[2021-12-06] MEDS ORDERED: ENOXAPARIN NA (PORCINE) 40 MG/0.4 ML DISP.SYRIN SQ SCH (10:00)
[2021-12-06] MEDS ORDERED: LIDOCAINE HCL 2% 100 MG/5 ML DISP.SYRIN ONE (12:54)
[2021-12-06] MEDS ORDERED: KETOROLAC TROMETHAMINE 30 MG/1 ML VIAL ONE (12:54)
[2021-12-06] MEDS ORDERED: DEXAMETHASONE SOD PHOSPHATE 4 MG/1 ML VIAL ONE (12:54)
[2021-12-06] MEDS ORDERED: PROPOFOL 20 ML ONE (12:55)
[2021-12-06] MEDS ORDERED: MIDAZOLAM HCL 2 MG/2 ML SINGLE DOSE VIAL ONE (12:55)
[2021-12-06] MEDS ORDERED: SUCCINYLCHOLINE CHLORIDE 200 MG/10 ML SYRINGE ONE (13:38)
[2021-12-06] MEDS ORDERED: ceFAZolin SODIUM 1 GM VIAL IVPB ONE (13:40)
[2021-12-06] MEDS ORDERED: ePHEDrine SULFATE 50 MG/1 ML AMPULE ONE (13:56)
[2021-12-06] MEDS ORDERED: PROMETHAZINE HCL 25 MG/1 ML VIAL IVPB PRN (14:24)
[2021-12-06] MEDS ORDERED: oxyCODONE HCL 5 MG TABLET PO PRN ×3 (14:24→14:27)
[2021-12-06] MEDS ORDERED: ONDANSETRON 4 MG/2 ML VIAL IVPUSH PRN (14:24)
[2021-12-06] MEDS ORDERED: LACTATED RINGERS SOLUTION 1,000 ML IV SCH (14:30)
[2021-12-06 16:15] VITALS: BP 119/61; PULSE 69; TEMP 97.8
== END 2021-12-06 17:28 | disposition home or self-care (01) | DRG 465 ==
LOC: JER 10:16 → JERBED 16:22
PROVIDERS: ADMIT Internal Medicine; ATTEND Nurse Practitioner Acute Care
PROC: 0T768DZ Dilation of Right Ureter with Intraluminal Device, Via Natural or Artificial Opening Endoscopic (ICD-10-PCS; principal; 2021-12-06 14:00)
PROC: BT1DYZZ Fluoroscopy of Right Kidney, Ureter and Bladder using Other Contrast (ICD-10-PCS; 2021-12-06 14:00)
DX: N13.2 Hydronephrosis with renal and ureteral calculous obstruction (principal); N17.9 Acute kidney failure, unspecified; E87.5 Hyperkalemia; N99.71 Accidental puncture and laceration of a genitourinary system organ or structure during a genitourinary system procedure; Y83.8 Other surgical procedures as the cause of abnormal reaction of the patient, or of later complication, without mention of misadventure at the time of the procedure
CPT/HCPCS: 36415; 74176-TC; 76000-TC-FY; 80053; 81003; 84132; 85025; 87086; 94760; 99285-25; C9803-CS; U0003; U0005

== ENCOUNTER 2022-11-23 16:24 | Emergency (ER) | payer OTHER ==
[2022-11-23 16:50] VITALS: BP 109/69; PULSE 73; RESP 16; TEMP 98.6; BMI 15.9
[2022-11-23] MEDS ORDERED: LIDOCAINE 5% TOPICAL PATCH TP ONE (17:10)
[2022-11-23] MEDS ORDERED: KETOROLAC TROMETHAMINE 30 MG/1 ML VIAL IM ONE (17:10)
[2022-11-23] MEDS ORDERED: KETOROLAC TROMETHAMINE 30 MG/1 ML VIAL ONE (17:15)
[2022-11-23] MEDS ORDERED: LIDOCAINE 5% TOPICAL PATCH ONE (17:16)
== END 2022-11-23 18:28 | disposition home or self-care (01) ==
LOC: FER 16:24
PROC: 3E0233Z Introduction of Anti-inflammatory into Muscle, Percutaneous Approach (ICD-10-PCS; principal; 2022-11-23)
DX: M25.511 Pain in right shoulder (principal); R07.89 Other chest pain
CPT/HCPCS: 71046-TC-FY; 73030-TC-RT-FY; 93005; 99284-25

== ENCOUNTER 2023-10-19 13:22 | Emergency (ER) | payer OTHER ==
[2023-10-19 13:57] VITALS: BP 105/65; PULSE 61; RESP 16; TEMP 98.9; BMI 15.9
[2023-10-19] MEDS ORDERED: ACETAMINOPHEN 500 MG TABLET (FP) ONE (15:00)
[2023-10-19] MEDS: ACETAMINOPHEN 500 MG TABLET (FP) PO ONE (15:02)
== END 2023-10-19 15:38 | disposition home or self-care (01) ==
LOC: SUPCPDRO 13:22 → FER 13:22
DX: S59.902A Unspecified injury of left elbow, initial encounter (principal); W01.198A Fall on same level from slipping, tripping and stumbling with subsequent striking against other object, initial encounter
CPT/HCPCS: 70450-TC; 70486-TC; 73030-TC-LT-FY; 73060-TC-LT-FY; 73070-TC-LT-FY; 73090-TC-LT-FY; 73562-TC-LT-FY; 73562-TC-RT-FY; 99284-25

== ENCOUNTER 2023-11-21 03:46 | Day surgery (SDC) | payer OTHER ==
[2023-11-13 10:59] VITALS: BMI 16.2
[2023-11-21 07:16] VITALS: RESP 20
[2023-11-21] MEDS ORDERED: FENTANYL CITRATE/PF 50 MCG/ML VIAL ONE (09:25)
[2023-11-21] MEDS ORDERED: MIDAZOLAM HCL 2 MG/2 ML SINGLE DOSE VIAL ONE (09:25)
[2023-11-21 11:04] VITALS: BP 96/61; PULSE 58; TEMP 97.7
== END 2023-11-21 11:05 | disposition home or self-care (01) ==
LOC: JASU-SURG 03:46
PROVIDERS: ATTEND Urology
PROC: 0TF3XZZ Fragmentation in Right Kidney Pelvis, External Approach (ICD-10-PCS; principal; 2023-11-21 09:00)
DX: N20.0 Calculus of kidney (principal)

== ENCOUNTER 2023-11-25 13:10 | Emergency (ER) | payer OTHER ==
[2023-11-25 13:19] VITALS: BP 120/70; PULSE 69; RESP 18; TEMP 98; BMI 15.9
[2023-11-25 14:00] LABS: HEMATOCRIT 42.7 % (32.4-45.2); HEMOGLOBIN 14.2 G/dL (10.7-15.3); MCH 32.4 pg (25.7-33.7); MCHC 33.1 g/dl (32.0-36.0); MEAN CELL VOLUME 97.6 fl (80-96); MEAN PLT VOLUME 11.8 fl (7.5-11.1); PLATELET COUNT 89.4 10^3/uL (134-434); RBC 4.37 10^6/uL (3.60-5.2); RDW 12.9 % (11.6-15.6); WHITE BLOOD COUNT 5.2 10^3/uL (4.0-10.8)
[2023-11-25 14:10] LABS: ALBUMIN 4.5 g/dl (3.4-5.0); ALK PHOS 61 U/L (45-117); ANION GAP 8 mmol/L (4-13); CALCIUM 9.7 mg/dl (8.5-10.1); CHLORIDE 103 mmol/L (98-107); CO2 28 mmol/L (21-32); CREATININE 0.7 mg/dl (0.6-1.3); GLUCOSE,RANDOM 122 mg/dl (74-106); POTASSIUM 4.1 mmol/L (3.5-5.1); SGOT/AST 25 U/L (15-37); SGPT/ALT 23 U/L (7-52); SODIUM 139 mmol/L (136-145); TOT PROT 6.8 g/dl (6.4-8.2)
[2023-11-25 14:19] LABS: PLATELET ESTIMATE DECREASED
== END 2023-11-25 14:50 | disposition home or self-care (01) ==
LOC: FER 13:10
DX: D69.6 Thrombocytopenia, unspecified (principal); R31.9 Hematuria, unspecified; M54.9 Dorsalgia, unspecified
CPT/HCPCS: 36415; 80053; 81003; 81015; 85027; 87086; 99283-25